=== PATIENT | female | born 1960 | race Caucasian/White ===

== ENCOUNTER 2021-06-05 07:38 | Day surgery (SDC) | payer OTHER ==
[~2021-06-05 07:38] MED LIST: Lactated Ringers 1,000 ML IV SCH
[2021-06-05] MEDS ORDERED: Midazolam 1 MG/ML 2 ML SDV ONE (09:57)
[2021-06-05] MEDS ORDERED: Propofol 200 MG/20 ML SDV ONE (09:57)
[2021-06-05] MEDS ORDERED: fentaNYL 100 MCG/2 ML SDV ONE (09:57)
--- NOTE | 2021-06-05 14:30 | OR ---
DATE OF SURGERY: 06/05/2021. REFERRING PROVIDER: Magi Godinez DO PRE-OPERATIVE DIAGNOSES: 1. Screening colonoscopy. No family history of any first-degree relatives with colon cancer. 2. Chronic constipation. The patient is to push manually to the perineum to facilitate bowel movements. POST-OPERATIVE DIAGNOSES: 1. Somewhat tortuous colon, but otherwise normal. 2. Normal-appearing terminal ileum. PROCEDURE: Colonoscopy. SURGEON: Kerwin Traore M.D. ANESTHESIA: Monitored anesthesia care. BOWEL PREP: Good. Kamila is a 60-year-old female who was brought to the endoscopy suite after discussing risks and benefits of the procedure. Informed consent was obtained for conscious sedation and colonoscopy with or without biopsy and/or polypectomy. We also discussed possibility of missed lesions. Pre-procedure exam was unremarkable. IV, oxygen, and monitors were placed. The patient was placed in the left lateral decubitus position. Sedation was administered and a digital rectal exam was performed and unremarkable. Colonoscope was passed into the rectum and slowly advanced all the way to the cecum. Cecum was viewed and photographed. Ileocecal valve was intubated and terminal ileum was normal in appearance. The colonoscope was slowly withdrawn and the mucosa was closed observed in a direct circumferential manner. The ascending colon was unremarkable. The transverse colon was unremarkable. The descending colon was unremarkable. The sigmoid colon was unremarkable. Retroflexion was performed and rectal mucosa was unremarkable. Scope was removed. The patient tolerated the procedure well. The patient was monitored until that baseline status. Discharge instructions were reviewed and the patient was discharged in good condition. COMPLICATIONS: None. TOTAL TIME: 19 minutes. ESTIMATED BLOOD LOSS: None. RECOMMENDATIONS/FOLLOW-UP: Barring any change in personal symptoms or family history, the patient is good for 10 years on colon cancer screening. I would like to kindly thank Magi Godinez for this referral. DMB: 06/05/2021 11:35:19 MODL: 06/05/2021 12:38:48 /[id number]
== END 2021-06-05 11:25 | disposition home or self-care (01) ==
LOC: VM.SDS 07:38
PROVIDERS: ATTEND Family Medicine
DX: Z12.11 Encounter for screening for malignant neoplasm of colon (principal); K59.09 Other constipation; I10 Essential (primary) hypertension; G60.9 Hereditary and idiopathic neuropathy, unspecified; G43.909 Migraine, unspecified, not intractable, without status migrainosus; E78.00 Pure hypercholesterolemia, unspecified; M06.9 Rheumatoid arthritis, unspecified; Z79.899 Other long term (current) drug therapy; Z88.8 Allergy status to other drugs, medicaments and biological substances; Z98.890 Other specified postprocedural states
CPT/HCPCS: 00812; J2250; J2704; J3010; J7120